=== PATIENT | male | born 1940 | race Caucasian/White ===

== ENCOUNTER 2016-08-23 12:30 | Inpatient (IN) | payer MEDICARE, BC ==
[~2016-08-23 12:30] MED LIST: ALEVE220 M1 PO; AMLODIPINE BES2.5 M1 PO; ASPIR-TRIN325 M2 PO; ASPIR-TRIN325 MG PO; CARAFATE1 G2 PO; CARDURA4 MG PO; CARDURA8 M1 PO; CARDURA8 MG PO; CEFADROXIL500 M1 PO; COUMADIN1 M1 PO; COUMADIN5 M2 PO; COUMADIN5 MG PO; COUMADIN7.5 M1 PO; FERROUS SULFAT325 MG PO; FINASTERIDE5 MG PO; FLOMAX0.4 MG PO; GLUCOPHAGE XR500 M1 PO; GLUCOPHAGE500 MG PO; GLUCOPHAGE500 MG/TAB PO; JANTOVEN5 M1 PO; LEVOTHROID75 MCG PO; LISINOPRIL20 M1 PO; LOCOID TP; LOTREL 5/101 CAP PO; LOTREL PO; LOVENOX60 MG/0.1; METOPROLOL SUCC50 M1 PO; METOPROLOL TART25 MG PO; METOPXL25 PO; MOBIC15 MG PO; NIASPAN500 MG PO; NITROFURANTOIN100 MG PO; NORCO 5-325 TA1 EACH PO; PRAVACHOL20 MG PO; PRAVACHOL40 M1 PO; PRAVACHOL40 MG PO; PROSCAR5 M1 PO; SIMVASTATIN40 MG PO; SYNTHROID75 MC1 PO; SYNTHROID75 MCG PO; TOPROL XL100 M1 PO; TRIMETHOPR100 MG/TAB PO; TRIMETHOPRIM100 MG PO; TYLENOL325 M1 PO; TYLENOL325 M2 PO; WARFARIN; [UNRECOGNIZED DRUG - OTHER] PO
[2016-08-23] MEDS ORDERED: COREG3.125 M1 PO (13:31)
[2016-08-23] MEDS ORDERED: PROSCAR5 M1 PO (13:31)
[2016-08-23] MEDS ORDERED: LASIX40 M1 PO (13:31)
[2016-08-23] MEDS ORDERED: POTASSIUM CHLO20 ME3 PO (13:31)
[2016-08-23] MEDS ORDERED: LASIX80 M1 PO (13:31)
[2016-08-23] MEDS ORDERED: CARDURA8 M1 PO (13:32)
[2016-08-23] MEDS ORDERED: GLUCOPHAGE XR500 M1 PO (13:33)
[2016-08-23] MEDS ORDERED: HIPREX1 GM PO (13:33)
[2016-08-23] MEDS ORDERED: COUMADIN2.5 M1 PO (13:34)
[2016-08-23] MEDS ORDERED: COUMADIN4 M1 PO (13:34)
[2016-08-23] MEDS ORDERED: PRAVACHOL40 M1 PO (13:34)
[2016-08-23] MEDS ORDERED: CARAFATE1 G2 PO (13:34)
[2016-08-23 13:35] LABS: BASO % 0.1 % (0-2); HCT-HEMATOCRIT 41.5 % (36.0-53.5); HGB-HEMOGLOBIN 13.7 gm/dl (13.5-17.0); IMMATURE GRANULOCYTES ABSOLUTE 0.08 tho/cmm (0-0.03); IMMATURE GRANULOCYTES PERCENT 0.3 % (0-0.3); LYMPH % 8.2 % (20-45); LYMPH ABSOLUTE COUNT 1.9 tho/cmm (0.8-4.5); MCH (MEAN CORPUSCULAR HGB) 31.5 pg (28.0-32.0); MCV (MEAN CELL VOLUME) 95.4 fl (82.0-96.0); MEAN PLATELET VOLUME 11.3 cmc (9.4-12.4); MONO % 8.9 % (0-12); MONOCYTE ABSOLUTE COUNT 2.1 tho/cmm (0.0-1.2); NEUTROPHIL ABSOLUTE COUNT 19.2 tho/cmm (1.6-8.0); NEUTROPHIL-AUTOMATED 19.2 tho/cmm (1.6-8.0); NEUTROPHILS % 82.5 % (40-80); PLATELET COUNT 168 tho/cmm (150-450); RED BLOOD COUNT 4.35 mil/cmm (4.40-5.70); RED CELL DISTRIBUTION WIDTH 15.8 % (12.4-16.4); WHITE BLOOD COUNT 23.2 tho/cmm (4.0-10.0)
[2016-08-23] MEDS ORDERED: LEVOTHYROXINE75 MC3 PO (13:35)
[2016-08-23] MEDS ORDERED: CULTURELLE1 EAC1 PO (13:42)
[2016-08-23] MEDS ORDERED: CRANBERRY PO (13:42)
[2016-08-23] MEDS ORDERED: ASPIRIN325 M3 PO (13:42)
[2016-08-23 13:50] LABS: ALB/GLOB RATIO 0.7 (0.8-2.0); ALBUMIN 3.2 g/dl (3.5-5.0); ALKALINE PHOSPHATASE 50 U/L (33-138); ALT/SGPT 14 U/L (12-78); ANION GAP 13 mmol/L (0-20); AST/SGOT 17 U/L (10-40); BILIRUBIN,TOTAL 0.7 mg/dl (0.0-1.5); BLOOD UREA NITROGEN 29 mg/dl (6-24); C-REACTIVE PROTEIN 16.2 mg/dl (0-0.9); CALCIUM 8.7 mg/dl (8.5-10.5); CARBON DIOXIDE-VENOUS 25 mmol/L (22-32); CHLORIDE 103 mmol/l (96-110); GLUCOSE 119 mg/dL (70-110); POTASSIUM 3.7 mmol/L (3.7-5.1); SODIUM 137 mmol/L (135-145); eGFR VALUE FOR BLACK 55 mL/Min
[2016-08-23 15:00] LABS: INR 2.5 INR (0.9-1.1); PROTHROMBIN TIME 29.3 SECONDS (9.0-13.6)
[2016-08-23 16:22] LABS: URINE BILIRUBIN NEGATIVE (NEG); URINE BLOOD SMALL (NEG); URINE GLUCOSE (UA) NEGATIVE (NEG); URINE KETONE NEGATIVE (NEG); URINE LEUKOCYTE ESTERASE POSITIVE (NEG); URINE NITRITE NEGATIVE (NEG); URINE PROTEIN NEGATIVE (NEG)
[2016-08-23 16:26] LABS: URINE COLOR YELLOW
[2016-08-23 16:27] LABS: URINE APPEARANCE HAZY
[2016-08-23 16:38] LABS: URINE BACTERIA 1+; URINE EPITHELIAL CELLS 0-1 /[HPF] (0-10)
[2016-08-24 05:09] LABS: BASO % 0.1 % (0-2); EOS % 0.3 % (0-7); EOSINOPHIL ABSOLUTE COUNT 0.1 tho/cmm (0.0-0.7); HCT-HEMATOCRIT 37.3 % (36.0-53.5); HGB-HEMOGLOBIN 12.1 gm/dl (13.5-17.0); IMMATURE GRANULOCYTES ABSOLUTE 0.11 tho/cmm (0-0.03); IMMATURE GRANULOCYTES PERCENT 0.6 % (0-0.3); LYMPH % 9.5 % (20-45); LYMPH ABSOLUTE COUNT 1.7 tho/cmm (0.8-4.5); MCHC MEAN CORPUSCULAR HGB CONC 32.4 % (32.0-36.0); MCV (MEAN CELL VOLUME) 95.6 fl (82.0-96.0); MEAN PLATELET VOLUME 11.5 cmc (9.4-12.4); MONO % 7.6 % (0-12); MONOCYTE ABSOLUTE COUNT 1.3 tho/cmm (0.0-1.2); NEUTROPHIL ABSOLUTE COUNT 14.4 tho/cmm (1.6-8.0); NEUTROPHIL-AUTOMATED 14.4 tho/cmm (1.6-8.0); NEUTROPHILS % 81.9 % (40-80); PLATELET COUNT 160 tho/cmm (150-450); WHITE BLOOD COUNT 17.6 tho/cmm (4.0-10.0)
[2016-08-24 05:14] LABS: INR 2.6 INR (0.9-1.1); PROTHROMBIN TIME 30.8 SECONDS (9.0-13.6)
[2016-08-24 05:53] LABS: ANION GAP 11 mmol/L (0-20); BLOOD UREA NITROGEN 21 mg/dl (6-24); CALCIUM 7.9 mg/dl (8.5-10.5); CARBON DIOXIDE-VENOUS 26 mmol/L (22-32); CHLORIDE 106 mmol/l (96-110); CREATININE 0.94 mg/dl (0.60-1.30); GLUCOSE 102 mg/dL (70-110); SODIUM 139 mmol/L (135-145); eGFR VALUE FOR BLACK 90 mL/Min
[2016-08-24 05:59] LABS: POTASSIUM 3.8 mmol/L (3.7-5.1)
[2016-08-25 04:53] LABS: INR 2.2 INR (0.9-1.1); PROTHROMBIN TIME 25.8 SECONDS (9.0-13.6)
[2016-08-26 04:56] LABS: INR 2.1 INR (0.9-1.1); PROTHROMBIN TIME 25.2 SECONDS (9.0-13.6)
[2016-08-27 06:03] LABS: INR 2.5 INR (0.9-1.1); PROTHROMBIN TIME 29.9 SECONDS (9.0-13.6)
[2016-08-28 05:31] LABS: INR 2.4 INR (0.9-1.1); PROTHROMBIN TIME 28.4 SECONDS (9.0-13.6)
[2016-08-28] MEDS ORDERED: KEFLEX500 M4 PO (09:09)
== END 2016-08-28 12:30 | DRG 872 ==
LOC: EDMED 12:30 → EMR2 15:50 → PCUB 16:58
PROVIDERS: Emergency Medicine; Family Medicine; Internal Medicine; ADMIT Hospitalist
DX: A41.9 Sepsis, unspecified organism (principal); N17.9 Acute kidney failure, unspecified; E11.9 Type 2 diabetes mellitus without complications; N39.0 Urinary tract infection, site not specified; I48.2 Chronic atrial fibrillation; I10 Essential (primary) hypertension; B96.20 Unspecified Escherichia coli [E. coli] as the cause of diseases classified elsewhere; G25.81 Restless legs syndrome; E03.9 Hypothyroidism, unspecified; I69.398 Other sequelae of cerebral infarction; H53.8 Other visual disturbances; Z79.01 Long term (current) use of anticoagulants; K21.9 Gastro-esophageal reflux disease without esophagitis; E78.5 Hyperlipidemia, unspecified; I73.9 Peripheral vascular disease, unspecified; N40.0 Benign prostatic hyperplasia without lower urinary tract symptoms; I25.10 Atherosclerotic heart disease of native coronary artery without angina pectoris; Z95.1 Presence of aortocoronary bypass graft; M19.90 Unspecified osteoarthritis, unspecified site; Z79.82 Long term (current) use of aspirin; Z79.02 Long term (current) use of antithrombotics/antiplatelets; Z79.84 Long term (current) use of oral hypoglycemic drugs; N45.3 Epididymo-orchitis
CPT/HCPCS: J1335; J2543; J3370; J7030